=== PATIENT | female | born 1995 | race Two or more races ===

== ENCOUNTER 2025-06-20 16:12 | Emergency (ER) | payer OTHER, SELFPAY ==
[2025-06-20 16:13] VITALS: BMI 41.9
[2025-06-20 16:52] VITALS: BP 126/85; PULSE 76; RESP 18; TEMP 36.9; O2SAT 97
--- NOTE | 2025-06-20 16:56 | PD.EDRME ---
Rapid Medical Screening Exam RME Arrival date/time: 06/20/25 16:12 This is a case of 29-year-old female who came in in the emergency room due to vaginal bleeding for 2 to 3 months patient was seen by the physician and was given few days of Provera and now in control worsening of the symptoms since yesterday now with passing of blood clots thus patient decided to start consult here in the emergency ROOM Chief Complaint: Vaginal Bleeding Vital signs: Vital Signs Temperature 98.4 F 06/20/25 16:52 Pulse Rate 76 06/20/25 16:52 Respiratory Rate 18 06/20/25 16:52 Blood Pressure 126/85 H 06/20/25 16:52 Pulse Oximetry (%) 97 06/20/25 16:52 Oxygen Delivery Method Room Air 06/20/25 16:52
[2025-06-20 17:38] LABS: Basophils # (Auto) 0.0 Thou/mm3 (0.0-0.2); Basophils % (Auto) 1 % (0-2.5); Eosinophils # (Auto) 0.1 Thou/mm3 (0.0-0.5); Eosinophils % (Auto) 1 % (0-10); Hematocrit 40.2 % (36.0-46.0); Hemoglobin 13.2 g/dL (12.0-16.0); Immature Granulocytes Auto 0.02 Thou/mm3 (0.00-0.00); Lymphocytes # (Auto) 2.3 Thou/mm3 (1.0-4.8); Lymphocytes % (Auto) 26 % (10-50); Mean Corpuscular HGB Conc 32.8 g/dl (31.0-37.0); Mean Corpuscular Hemoglobin 29.5 pg (25.0-35.0); Mean Corpuscular Volume 90 fL (80-100); Monocytes # (Auto) 0.6 Thou/mm3 (0.0-0.8); Monocytes % (Auto) 7 % (0-12); Neutrophils # (Auto) 5.8 Thou/mm3 (1.8-7.7); Neutrophils % (Auto) 66 % (37-80); Nucleated Red Blood Cell # 0.00 Thou/mm3 (0.00-0.00); Nucleated Red Blood Cell % 0 /100 WBC (0); Platelet Count 236 Thou/mm3 (140-440); RDW Standard Deviation 44.0 fL (36.4-46.3); Red Blood Count 4.48 Miln/mm3 (4.00-5.20); White Blood Count 8.8 Thou/mm3 (3.6-11.0)
--- NOTE | 2025-06-20 17:39 | XR_ITS ---
Examination: Transvaginal ultrasound of the pelvis, complete Technique: Transvaginal sonographic images pelvis performed using morris scale imaging Exam date and time: June 20, 2025 1737 hours INDICATIONS: Heavy vaginal bleeding several months FINDINGS: Uterus 8.6 cm with increased vascularity Endometrial stipe 0.6 cm No uterine mass or intrauterine gestation Right ovary 2.7 cm arterial flow. Left ovary 3.5 cm arterial flow IMPRESSION: Increased vascularity to the uterus, clinical correlation advised. No uterine mass or intrauterine gestation No adnexal mass.
[2025-06-20 18:00] LABS: Alanine Aminotransferase 48 U/L (10-49); Albumin, Serum 4.2 gm/dL (3.5-5.0); Albumin/Globulin Ratio 1.4 (1.2-2.2); Alkaline Phosphatase 103 U/L (46-116); Anion Gap 11 (7-16); Aspartate Amino Transferase 28 U/L (0-34); BUN/Creatinine Ratio 8 Ratio (12-20); Beta HCG,Quantitative < 1 mIU/mL (<5.0); Bilirubin,Total 0.3 mg/dL (0.3-1.2); Blood Urea Nitrogen 7 mg/dL (9-23); Calcium 8.9 mg/dL (8.3-10.6); Calcium (Corrected) 8.9 mg/dL (8.5-10.1); Carbon Dioxide 23.3 mMol/L (20.0-31.0); Chloride 108 mMol/L (98-107); Creatinine (Component) 0.9 mg/dL (0.6-1.3); Estimated Creatinine Clearance 99.5 mL/min (>60); Globulin 3.0 gm/dL (2.3-3.5); Glucose 91 mg/dL (74-106); Osmolality,Calculated 281 (275-295); Potassium 3.8 mMol/L (3.4-5.1); Sodium 142 mMol/L (136-145); Total Protein 7.2 gm/dL (5.7-8.2); eGFR > 60 See Note
[2025-06-20 19:41] LABS: Collection Type, Urine Clean Catch
[2025-06-20 19:51] LABS: Amorphous Crystals,Urine Present (Absent); Bilirubin,Urine Negative (Negative); Blood,Urine 3+ (Negative); Clarity,Urine Turbid (Clear/Hazy); Glucose, Urine Negative (Negative); Ketones,Urine Negative (Negative); Leukocyte Esterase,Urine Positive (Negative); Nitrite,Urine Negative (Negative); PH,Urine 6.0 (5.0-7.0); Protein,Urine Trace (Neg - Trace); RBC,Urine 2965 /hpf (0-3); Specific Gravity,Urine 1.023 (1.001-1.035); Squamous Epithelial Cell,Urine 1 /hpf (0-5); Urobilinogen,Urine 4.0 mg/dL (0.0-1.0); WBC,Urine 45 /hpf (0-5)
[2025-06-20 19:54] LABS: Color,Urine Amber (Lt Yel-Yel)
--- NOTE | 2025-06-20 21:30 | EDNOTE_ITS ---
ED OB Contraction Preg RMI/HPI General Chief complaint: Vaginal Bleeding Stated complaint: TOLD BY [place]E TO COME IN S/P HEMORRHAGING Time Seen by Provider: 06/20/25 17:01 Arrival date/time: 06/20/25 16:12 29-year-old female presents to the ED with a complaint of heavy vaginal bleeding. She states she is fully soaking 1 maxi pad every hour. She denies any dizziness or lightheadedness. She has very irregular menstrual cycles and has been bleeding for at least 1 month. Her digital intern put her on a Provera challenge for 7 days and then put her on oral contraceptives. She took these oral contraceptives for 2 weeks but they caused significant nausea. She stopped taking them last , then took 1 on Saturday and has had none since. Her digital intern tested her and she was told she has hypothyroidism. She is currently taking thyroid medications. RME / HPI RME / HPI Narrative: 06/20/25 16:12 This is a case of 29-year-old female who came in in the emergency room due to vaginal bleeding for 2 to 3 months patient was seen by the physician and was given few days of Provera and now in control worsening of the symptoms since yesterday now with passing of blood clots thus patient decided to start consult here in the emergency ROOM Related Data Home Medications ?Medication ?Instructions ?Recorded ?Confirmed Vits W-Ca,Fe,Fa(<1MG) 1 tab PO QDAY #0 tabs 0 01/09/14 ( Vitamin) Previous Rx's ?Medication ?Instructions ?Recorded nitrofurantoin 100 mg PO Q12H 5 days #10 ca ps 06/20/25 monohydrate/macrocrystals 100 mg capsule (Macrobid) Allergies Allergy/AdvReac Type Severity Reaction Status Date / Time NKA* Allergy Uncoded 06/20/25 16:17 Review of Systems Review of Systems Systems Reviewed: All systems reviewed, normal except as documented Past Medical History Social History SMOKING STATUS: Never smoker ED Exam Narrative Physical exam: A&O, afebrile and non-toxic appearing, pleasant 29-year-old female, no acute distress. Lung are clear, RRR, Abdomen is non-distended. Moves all extremities well. Course Course Course Narrative: Vital signs are BP 126/85, pulse 76, respirations 18 and nonlabored, temperature 98.4, O2 sat 97% on room air. CBC reveals a normal white count, normal hemoglobin of 13.2, normal hematocrit of 40.2, and normal platelet level of 236. CMP reveals normal electrolytes, normal renal function, normal glucose of 91, normal LFTs, and beta-hCG is less than 1. Urinalysis reveals turbid sindhu urine with a specific gravity of 1.023 with trace protein, 3+ blood, negative nitrites, positive leukocyte Estrace, 2965 RBCs, 45 WBCs, 1 epithelial cell and no bacteria. Blood bank tests reveal low positive blood with negative antibody. Transvaginal ultrasound of the pelvis reveals increased vascularity to the uterus, no uterine mass or intrauterine gestation, and no adnexal mass. Offered TXA 1000 mg IV. Discussed risks and benefits. Patient has opted out of receiving TXA at this time stating she will follow-up with her digital intern tomorrow. Repeat hemoglobin and hematocrit went up from 13.2 up to 13.4/40.2 up to 41.0 Quality Measures none Orders Category Date Time Status US transvaginal Stat Exams 06/20/25 17:39 Completed Beta HCG,Quantitative Stat Lab 06/20/25 17:31 Completed CBC Stat Lab 06/20/25 17:31 Completed Comprehensive Metabolic Panel Stat Lab 06/20/25 17:31 Completed Hemoglobin and Hematocrit Stat Lab 06/20/25 22:00 Completed Type and Screen Stat Lab 06/20/25 17:31 Completed Urinalysis Stat Lab 06/20/25 19:30 Completed Vital Signs Vital signs: Vital Signs Temperature 98.4 F 06/20/25 16:52 Pulse Rate 76 06/20/25 16:52 Respiratory Rate 18 06/20/25 16:52 Blood Pressure 126/85 H 06/20/25 16:52 Pulse Oximetry (%) 97 06/20/25 16:52 Oxygen Delivery Method Room Air 06/20/25 16:52 Vaginal Bleeding MDM Narrative MDM Narrative: Symptoms, exam and diagnostic studies are consistent with: Menorrhagia without change in hemoglobin/hematocrit. Repeat H and H improved since her arrival. Patient was discharged home in stable condition. Patient/family advised to follow-up with their PCP in 24-48 hours. Encouraged to return to the ED for any new or worsening symptoms. Patient data External records reviewed:: None Clinical information provided by:: patient Social determinants that could affect healthcare access:: none Patient has the following chronic illnesses:: Hypothyroidism How is presenting disease/condition affected by chronic disease/condition?: exacerbated by Evaluation data The following diagnostics were reviewed and interpreted by me:: lab results and radiology exam(s) Lab and/or radiology exams considered but not ordered:: N/A Interpretation Summary: As noted above Medications / Prescriptions Medications or Prescriptions considered but not ordered:: N/A Medication administrations:: N/A Consultations Consultation(s) initiated? (list below): Yes Consultation #1 (Physician, Specialty, Details): Discussed case with Dr. Lew, ER physician. Does not recommend Provera challenge. If bleeding significantly, give TXA. Discussed TXA with the patient who opts out of receiving TXA at this time. Diagnosis Vaginal Bleeding Differential Diagnosis: dysfunctional uterine bleeding, menometrorrhagia, ectopic without intrauterine and vaginal bleeding Most likely diagnosis given after review of the tests above:: Menorrhagia Admission Indicated Admission indicated?: not indicated Explain why admission is indicated or not indicated:: Patient is stable for discharge. Hemoglobin and hematocrit have improved since her arrival. Admission Request Was there a request for admission?: No Disposition Plan Disposition Plan: Discharge Discharge Attestation Discharge Attestation: The patient and all family members were given an opportunity to ask questions and understood the discharge instructions. Discharge instructions specifically effects, indications for sooner follow up or return to the emergency department, and the expected course of current diagnosis. Patient condition: Stable Discharge Plan Plan Patient Disposition: HOME (Self Care) Discharge Disposition comment: Stable Prescriptions/Referrals Prescriptions/Med Rec: New nitrofurantoin monohyd/m-cryst [Macrobid] 100 mg capsule 100 mg PO Q12H 5 Days Qty: 10 0RF Rx Instructions: must administer with a meal/food No Action Vits W-Ca,Fe,Fa(<1MG) ( Vitamin) 1 TAB tablet 1 tab PO QDAY Qty: 0 Referrals: Simone Morataya MD [Primary Care Provider] - In 1 week Problem List Clinical Impression: Menorrhagia, UTI (urinary tract infection) Patient/Caregiver Discharge Instructions Education Materials: ED Heavy Menstrual Bleeding Additional Instructions: Follow-up with your primary care physician in 24 to 48 hours. Return to the ED for any new or worsening symptoms. Print Language: [place]ian Stand Alone Forms: Catherine Award Info., Patient Portal Info Letter PA/PLANT EQUIPMENT ENGINEER Supervising Physician PA/PLANT EQUIPMENT ENGINEER Supervising Physician: Dr. Lew
[2025-06-20 22:05] LABS: Hematocrit 41.0 % (36.0-46.0); Hemoglobin 13.4 g/dL (12.0-16.0)
== END 2025-06-20 22:34 | disposition home or self-care (01) ==
PROVIDERS: Nurse Practitioner Family; Physician Assistant; Emergency Provider Emergency Medicine; PCP Family Medicine
DX: N92.0 Excessive and frequent menstruation with regular cycle (principal); N39.0 Urinary tract infection, site not specified
CPT/HCPCS: 36415; 76830; 80053; 81001; 84702; 85014; 85018; 85025; 86850; 86900; 86901; 99283